=== PATIENT | male | born 1965 | race Two or more races ===

== ENCOUNTER 2017-10-27 14:55 | Emergency (ER) | payer OTHER ==
[~2017-10-27] VITALS: Ht 180.3 cm; Wt 93.9 kg
[2017-10-27 15:00] VITALS: BP 166/84
[2017-10-27] MEDS ORDERED: DIPH,PERTUSS(ACELL),TET VAC/PF 0.5 ML IM-VACC ONE ×2 (15:25→15:30)
== END 2017-10-27 16:22 | disposition home or self-care (01) ==
LOC: ED 15:30
DX: S67.22XA Crushing injury of left hand, initial encounter (principal); X58.XXXA Exposure to other specified factors, initial encounter; Y93.89 Activity, other specified; Y92.89 Other specified places as the place of occurrence of the external cause; Y99.0 Civilian activity done for income or pay
CPT/HCPCS: 90471; 90715; 99284